=== PATIENT | male | born 1995 | race Caucasian/White ===

== ENCOUNTER 2016-07-04 16:48 | Emergency (ER) | payer OTHER ==
[~2016-07-04] VITALS: Ht 177.8 cm; Wt 73.0 kg
[~2016-07-04 16:48] MED LIST: LITH1TAB3 OR; RISP1TAB51 OR
[2016-07-04 17:04] VITALS: BP 119/75; PULSE 98; RESP 18; TEMP 98.5; O2SAT 98
[2016-07-04] MEDS ORDERED: TETANUS/DIPHTHERIA TOXOID ADULT 0.5 ML VIAL IM ONE (17:45)
--- NOTE | 2016-07-04 17:45 | PD ---
HPI Chief Complaint: Psychiatric Symptoms Time Seen by Provider: 17:41 Travel History International Travel<30 days: No Contact w/Intl Traveler<30days: No Traveled to known affect area: No History of Present Illness HPI 21-year-old male that presents to the ED for evaluation of psych. Patient was [place] acted by police after apparently he got himself in the bathroom and started to cut himself cutting himself that he wasn't hurt himself. Patient has a history of anxiety, depression, substance abuse as well as possible bipolar. Patient denies taking any medications he states that he is to be a lot of medications but he has not been on any medications for almost 2 years. He denies any allergies to medication. Patient states that he does not know his last tetanus shot. Per patient he cut himself to kill himself. Patient has multiple cuts are very superficial to the wrist, legs. He denies any other injury. No allergies to medication. No chest pain or shortness of breath. Denies any recent substance abuse. PFSH Past Medical History ADHD: No Cancer: No Cardiovascular Problems: No Diabetes: No Psychiatric: Yes (ADHD) Migraines: No Seizures: No Thyroid Disease: No Ulcer: No Social History Alcohol Use: No Tobacco Use: No Substance Use: Yes Allergies-Medications (Allergen,Severity, Reaction): Coded Allergies: No Known Allergies (Unverified , 01/14/12) Reported Meds & Prescriptions Reported Meds & Active Scripts Active Reported Lithobid ([place] Carbonate) 300 Mg Tab 450 Mg OR BID (0700,2100) Risperdal (Risperidone) 1 Mg Tab 1 Mg OR BID (0700,2100) Review of Systems Except as stated in HPI: all other systems reviewed are Neg Physical Exam Narrative GENERAL: SKIN: Warm and dry. Patient has multiple superficial cuts to the wrist and legs bilaterally. Most of them less than 1 mm deep. No active bleeding. At least more than 30 different cuts. HEAD: Atraumatic. Normocephalic. EYES: Pupils equal and round. No scleral icterus. No injection or drainage. ENT: No nasal bleeding or discharge. Mucous membranes pink and moist. Tongue is midline. No uvula deviation. NECK: Trachea midline. No JVD. CARDIOVASCULAR: Regular rate and rhythm. No murmurs, S3, S4. RESPIRATORY: No accessory muscle use. Clear to auscultation. Breath sounds equal bilaterally. GASTROINTESTINAL: Abdomen soft, non-tender, nondistended. Hepatic and splenic margins not palpable. MUSCULOSKELETAL: Extremities without clubbing, cyanosis, or edema. No obvious deformities. Full range of motion of the upper and lower extremities bilaterally. 2+ pulses bilaterally. NEUROLOGICAL: Awake and alert. No obvious cranial nerve deficits. Motor grossly within normal limits. Five out of 5 muscle strength in the arms and legs. Normal speech. PSYCHIATRIC: Appropriate mood and affect; insight and judgment normal. Data Data Last Documented VS Vital Signs Date Time Temp Pulse Resp B/P Pulse Ox O2 Delivery O2 Flow Rate FiO2 07/04/16 20:21 131 18 141/76 98 Room Air 07/04/16 17:04 98.5 Orders Complete Blood Count With Diff (07/04/16 17:14) Comprehensive Metabolic Panel (07/04/16 17:14) Psych Screen (07/04/16 17:14) Drug Screen, Random Urine (07/04/16 17:14) Alcohol (Ethanol) (07/04/16 17:14) Tetanus/Diphtheria Tox Adult (Tetanus/Di (07/04/16 17:45) Wound Care (07/04/16 18:57) Labs Laboratory Tests Test 07/04/16 07/04/16 17:32 17:40 White Blood Count 8.0 TH/MM3 Red Blood Count 5.01 MIL/MM3 Hemoglobin 14.6 GM/DL Hematocrit 43.6 % Mean Corpuscular Volume 87.2 FL Mean Corpuscular Hemoglobin 29.1 PG Mean Corpuscular Hemoglobin 33.4 % Concent Red Cell Distribution Width 13.4 % Platelet Count 164 TH/MM3 Mean Platelet Volume 10.3 FL Neutrophils (%) (Auto) 64.0 % Lymphocytes (%) (Auto) 23.7 % Monocytes (%) (Auto) 11.2 % Eosinophils (%) (Auto) 0.6 % Basophils (%) (Auto) 0.5 % Neutrophils # (Auto) 5.2 TH/MM3 Lymphocytes # (Auto) 1.9 TH/MM3 Monocytes # (Auto) 0.9 TH/MM3 Eosinophils # (Auto) 0.0 TH/MM3 Basophils # (Auto) 0.0 TH/MM3 CBC Comment DIFF FINAL Differential Comment Sodium Level 139 MEQ/L Potassium Level 4.5 MEQ/L Chloride Level 105 MEQ/L Carbon Dioxide Level 24.1 MEQ/L Anion Gap 10 MEQ/L Blood Urea Nitrogen 22 MG/DL Creatinine 1.10 MG/DL Estimat Glomerular Filtration 84 ML/MIN Rate Random Glucose 96 MG/DL Calcium Level 9.3 MG/DL Total Bilirubin 0.6 MG/DL Aspartate Amino Transf 18 U/L (AST/SGOT) Alanine Aminotransferase 23 U/L (ALT/SGPT) Alkaline Phosphatase 90 U/L Total Protein 8.1 GM/DL Albumin 4.3 GM/DL Ethyl Alcohol Level LESS THAN 3 MG/DL Urine Opiates Screen POS Urine Barbiturates Screen NEG Urine Amphetamines Screen NEG Urine Benzodiazepines Screen NEG Urine Cocaine Screen NEG Urine Cannabinoids Screen NEG MDM Medical Decision Making Medical Screen Exam Complete: Yes Emergency Medical Condition: Yes Medical Record Reviewed: Yes Interpretation(s) tox positive for opiates CBC & BMP Diagram 07/04/16 17:32 Differential Diagnosis Depression versus suicidal ideation versus anxiety versus adjustment disorder versus mood disorder versus bipolar disorder versus schizophrenia versus paranoid disorder versus psychosis versus substance abuse versus alcohol abuse versus alcohol induced psychosis versus homicidality addition versus cutting versus personality disorder Narrative Course 21-year-old male that presents to the ED for evaluation of psych. Patient was properly examined and was found to have signs and symptoms consistent psychiatric illness. No sign of acute medical distress. Labs were drawn. Wound care was done. Patient was given tetanus booster. Patient was medically cleared. Okay to be seen by psych. Mental health screening was discussed with the patient. Diagnosis Primary Impression: Mood disorder Additional Impression: Deliberate self-cutting Talon Howell July 04, 2016 17:45
[2016-07-04 17:56] LABS: AUTOMATED NEUTROPHIL # 5.2 TH/MM3 (1.8-7.7); BASOPHIL % 0.5 % (0.0-2.0); EOSINOPHIL % 0.6 % (0.0-4.0); HEMATOCRIT 43.6 % (39.0-51.0); HEMO FLAGS DIFF FINAL; LYMPH % 23.7 % (9.0-44.0); LYMPHOCYTE # 1.9 TH/MM3 (1.0-4.8); MEAN CELL VOLUME 87.2 FL (80.0-100.0); MEAN CORPUSCULAR HEMOGLOBIN 29.1 PG (27.0-34.0); MEAN CORPUSCULAR HGB CONC 33.4 % (32.0-36.0); MONO % 11.2 % (0.0-8.0); PLATELET COUNT 164 TH/MM3 (150-450); RED BLOOD COUNT 5.01 MIL/MM3 (4.50-5.90); RED CELL DISTRIBUTION WIDTH 13.4 % (11.6-17.2)
[2016-07-04 18:09] LABS: AMPHETAMINE, URINE NEG (NEG); BARBITURATES, URINE NEG (NEG); COCAINE, URINE NEG (NEG)
[2016-07-04 18:12] LABS: ANION GAP 10 MEQ/L (5-15)
[2016-07-04 18:15] LABS: ALKALINE PHOSPHATASE 90 U/L (45-117); ALT (GPT) 23 U/L (12-78); AST (GOT) 18 U/L (15-37); BICARBONATE 24.1 MEQ/L (21.0-32.0); BLOOD UREA NITROGEN 22 MG/DL (7-18); CHLORIDE 105 MEQ/L (98-107); GLOMERULAR FILTRATION RATE 84 ML/MIN (>89); POTASSIUM 4.5 MEQ/L (3.5-5.1); SODIUM (NA) 139 MEQ/L (136-145); TOTAL BILIRUBIN ADULT 0.6 MG/DL (0.2-1.0)
[2016-07-04 20:21] VITALS: BP 141/76; PULSE 131; RESP 18; O2SAT 98
[2016-07-04 22:22] VITALS: BP 118/61; PULSE 91; RESP 18; O2SAT 98
[2016-07-05 01:53] VITALS: BP 119/67; PULSE 66; RESP 18; O2SAT 100
[2016-07-05 06:26] VITALS: BP 112/58; PULSE 60; RESP 16; O2SAT 98
[2016-07-05 10:36] VITALS: BP 100/56; PULSE 98; RESP 18; TEMP 98.6; O2SAT 100
[2016-07-05 14:40] VITALS: BP 135/78; PULSE 144; RESP 18; O2SAT 99
[2016-07-05 18:58] VITALS: BP 120/66; PULSE 95; RESP 16; O2SAT 98
[2016-07-05 22:00] VITALS: BP 109/56; PULSE 72; RESP 19; O2SAT 97
== END 2016-07-05 23:04 ==
LOC: NEDAMB 16:48 → NEDA 07-05 21:33 → UNDOADMIN 07-05 21:33 → NEPJ 07-05 23:04
DX: F39 Unspecified mood [affective] disorder (principal); S61.512A Laceration without foreign body of left wrist, initial encounter; S61.511A Laceration without foreign body of right wrist, initial encounter; S81.812A Laceration without foreign body, left lower leg, initial encounter; S81.811A Laceration without foreign body, right lower leg, initial encounter; X78.9XXA Intentional self-harm by unspecified sharp object, initial encounter; Z23 Encounter for immunization
CPT/HCPCS: 80053; 80307; 85025; 90471; 90714

== ENCOUNTER 2017-06-03 07:45 | Emergency (ER) | payer OTHER ==
[~2017-06-03] VITALS: Ht 172.7 cm; Wt 64.0 kg
[2017-06-03 07:56] VITALS: BP 115/71; PULSE 111; RESP 18; TEMP 98; O2SAT 97
[2017-06-03] MEDS ORDERED: LORazepam 2 MG/ML VIAL IV PUSH ONE ×2 (08:15→11:45)
[2017-06-03] MEDS ORDERED: SODIUM CHLOR 0.9% 1000 ML INJ 1,000 ML IV ONE (08:15)
[2017-06-03 08:44] LABS: AUTOMATED NEUTROPHIL # 14.1 TH/MM3 (1.8-7.7); BASOPHIL # 0.1 TH/MM3 (0-0.2); BASOPHIL % 0.6 % (0.0-2.0); EOSINOPHIL # 0.1 TH/MM3 (0-0.4); EOSINOPHIL % 0.6 % (0.0-4.0); HEMATOCRIT 44.4 % (39.0-51.0); HEMOGLOBIN 15.5 GM/DL (13.0-17.0); LYMPH % 10.8 % (9.0-44.0); MEAN CELL VOLUME 87.5 FL (80.0-100.0); MEAN CORPUSCULAR HEMOGLOBIN 30.5 PG (27.0-34.0); MEAN CORPUSCULAR HGB CONC 34.9 % (32.0-36.0); MEAN PLATELET VOLUME 10.1 FL (7.0-11.0); PLATELET COUNT 234 TH/MM3 (150-450); RED BLOOD COUNT 5.08 MIL/MM3 (4.50-5.90); RED CELL DISTRIBUTION WIDTH 12.2 % (11.6-17.2); WHITE BLOOD COUNT 18.3 TH/MM3 (4.0-11.0)
[2017-06-03 08:56] LABS: ALBUMIN 4.4 GM/DL (3.4-5.0); ALT (GPT) 23 U/L (12-78); AST (GOT) 41 U/L (15-37); BICARBONATE 19.4 MEQ/L (21.0-32.0); BLOOD UREA NITROGEN 26 MG/DL (7-18); CALCIUM 8.8 MG/DL (8.5-10.1); CHLORIDE 113 MEQ/L (98-107); CREATININE 1.23 MG/DL (0.60-1.30); GLOMERULAR FILTRATION RATE 73 ML/MIN (>89); GLUCOSE,RANDOM 56 MG/DL (74-106); SODIUM (NA) 144 MEQ/L (136-145)
[2017-06-03 08:59] LABS: ALKALINE PHOSPHATASE 73 U/L (45-117); TOTAL BILIRUBIN ADULT 1.8 MG/DL (0.2-1.0); TOTAL PROTEIN 7.6 GM/DL (6.4-8.2)
[2017-06-03 12:17] VITALS: BP 109/74; PULSE 104; RESP 16; O2SAT 100
[2017-06-03 15:40] VITALS: BP 124/84; PULSE 136; RESP 18; O2SAT 100
--- NOTE | 2017-06-03 15:41 | PD ---
HPI Chief Complaint: Alcohol/Drug Intoxication Time Seen by Provider: 08:06 Travel History International Travel<30 days: No Contact w/Intl Traveler<30days: No Traveled to known affect area: No History of Present Illness HPI Patient is a 22-year-old male brought in by EMS due to likely intoxication. Per EMS, he was found laying in the median of the road with jerking movements. A passerby had called 911 because they were concerned he was having a seizure. Patient says he took some sort of white powder, he does not know what it was. He says he has not slept in 96 hours and he just really wanted to go to sleep that is why he was in the median. He has no complaints at this time. Severity is mild to moderate. PFSH Past Medical History ADHD: No Cancer: No Cardiovascular Problems: No Diabetes: No Psychiatric: Yes (ADHD) Migraines: No Seizures: No Thyroid Disease: No Ulcer: No ?: Not Past Surgical History Other Surgery: No Social History Alcohol Use: No Tobacco Use: No Substance Use: Yes ("opiate abuse and dashawn") Allergies-Medications (Allergen,Severity, Reaction): Coded Allergies: No Known Allergies (Unverified , 01/14/12) Reported Meds & Prescriptions Reported Meds & Active Scripts Active Review of Systems Except as stated in HPI: all other systems reviewed are Neg General / Constitutional: No: Fever, Chills Eyes: No: Blurred Vision HENT: No: Headaches Cardiovascular: No: Chest Pain or Discomfort Respiratory: No: Shortness of Breath Skin: No Rash, No Change in Pigmentation Neurologic: No: Weakness, Dizziness Physical Exam Narrative GENERAL: Patient cannot hold still and is jerking his body all over. He is awake and able to communicate. SKIN: Focused skin assessment warm/dry. No wounds or signs of infection. HEAD: Atraumatic. Normocephalic. EYES: Pupils equal and round and reactive. No scleral icterus. EOMI. ENT: Mucous membranes pink and moist. NECK: Trachea midline. No JVD. CARDIOVASCULAR: Regular rate and rhythm. No murmur appreciated. RESPIRATORY: No accessory muscle use. Clear to auscultation. Breath sounds equal bilaterally. GASTROINTESTINAL: Abdomen soft, non-tender, nondistended. MUSCULOSKELETAL: No obvious deformities. No clubbing. No cyanosis. No edema. NEUROLOGICAL: Awake and alert, obviously intoxicated. No obvious cranial nerve deficits. uncontrollable body movements. Data Data Last Documented VS Vital Signs Date Time Temp Pulse Resp B/P (MAP) Pulse Ox O2 Delivery O2 Flow Rate FiO2 06/03/17 12:17 104 16 109/74 (86) 100 Nasal Cannula 3.00 06/03/17 07:56 98.0 Orders Orders Iv Access Insert/Monitor (06/03/17 08:06) Complete Blood Count With Diff (06/03/17 08:06) Comprehensive Metabolic Panel (06/03/17 08:06) Sodium Chlor 0.9% 1000 Ml Inj (Ns 1000 M (06/03/17 08:15) Lorazepam Inj (Ativan Inj) (06/03/17 08:15) Creatine Kinase (Cpk) (06/03/17 08:06) CKMB (06/03/17 08:10) CKMB% (06/03/17 08:10) Lorazepam Inj (Ativan Inj) (06/03/17 11:45) Psych Screen (06/03/17 14:56) Drug Screen, Random Urine (06/03/17 14:56) Labs Laboratory Tests Test 06/03/17 08:10 White Blood Count 18.3 TH/MM3 Red Blood Count 5.08 MIL/MM3 Hemoglobin 15.5 GM/DL Hematocrit 44.4 % Mean Corpuscular Volume 87.5 FL Mean Corpuscular Hemoglobin 30.5 PG Mean Corpuscular Hemoglobin Concent 34.9 % Red Cell Distribution Width 12.2 % Platelet Count 234 TH/MM3 Mean Platelet Volume 10.1 FL Neutrophils (%) (Auto) 77.0 % Lymphocytes (%) (Auto) 10.8 % Monocytes (%) (Auto) 11.0 % Eosinophils (%) (Auto) 0.6 % Basophils (%) (Auto) 0.6 % Neutrophils # (Auto) 14.1 TH/MM3 Lymphocytes # (Auto) 2.0 TH/MM3 Monocytes # (Auto) 2.0 TH/MM3 Eosinophils # (Auto) 0.1 TH/MM3 Basophils # (Auto) 0.1 TH/MM3 CBC Comment DIFF FINAL Differential Comment Blood Urea Nitrogen 26 MG/DL Creatinine 1.23 MG/DL Random Glucose 56 MG/DL Total Protein 7.6 GM/DL Albumin 4.4 GM/DL Calcium Level 8.8 MG/DL Alkaline Phosphatase 73 U/L Aspartate Amino Transf (AST/SGOT) 41 U/L Alanine Aminotransferase (ALT/SGPT) 23 U/L Total Bilirubin 1.8 MG/DL Sodium Level 144 MEQ/L Potassium Level 3.5 MEQ/L Chloride Level 113 MEQ/L Carbon Dioxide Level 19.4 MEQ/L Anion Gap 12 MEQ/L Estimat Glomerular Filtration Rate 73 ML/MIN Total Creatine Kinase 879 U/L Creatine Kinase MB 6.4 NG/ML Creatine Kinase MB % 0.7 % MDM Medical Decision Making Medical Screen Exam Complete: Yes Emergency Medical Condition: Yes Medical Record Reviewed: Yes Differential Diagnosis Drug abuse versus overdose versus electrolyte abnormality versus rhabdomyolysis versus dehydration Narrative Course Patient is a 22-year-old male who is brought in after he was found laying in the median on the road. He says he was just trying to get some sleep. He does admit to using some sort of white powder, he does not know what it was. He has no complaints at this time. He is jerking around and unable to control himself. IV was established. He was given IV fluids, Ativan. Labs sent do show an elevated white blood cell count, however patient has no signs or symptoms of infection, believe this is likely a stress reaction. Patient observed with continued jerking movements, he was given a second dose of Ativan and additional fluids. He was observed in the emergency department with improvement. His sister came and expressed concerns that he is depressed. She says that he has been telling her that he just cannot deal with it anymore and just wants to go. Psych screen ordered. Diagnosis Primary Impression: Drug intoxication Qualified Codes: F19.920 - Other psychoactive substance use, unspecified with intoxication, uncomplicated Andie Fuentes MD Jun 03, 2017 15:41
[2017-06-03 15:49] VITALS: PULSE 84; RESP 18; O2SAT 99
[2017-06-03 17:37] LABS: AUTOMATED NEUTROPHIL # 7.4 TH/MM3 (1.8-7.7); BASOPHIL # 0.1 TH/MM3 (0-0.2); BASOPHIL % 1.1 % (0.0-2.0); EOSINOPHIL # 0.4 TH/MM3 (0-0.4); EOSINOPHIL % 3.6 % (0.0-4.0); HEMATOCRIT 42.8 % (39.0-51.0); HEMOGLOBIN 14.7 GM/DL (13.0-17.0); LYMPH % 18.6 % (9.0-44.0); LYMPHOCYTE # 2.1 TH/MM3 (1.0-4.8); MEAN CELL VOLUME 89.4 FL (80.0-100.0); MEAN CORPUSCULAR HEMOGLOBIN 30.7 PG (27.0-34.0); MEAN CORPUSCULAR HGB CONC 34.4 % (32.0-36.0); MEAN PLATELET VOLUME 9.7 FL (7.0-11.0); MONO % 10.2 % (0.0-8.0); MONOCYTE # 1.1 TH/MM3 (0-0.9); NEUT % 66.5 % (16.0-70.0); PLATELET COUNT 193 TH/MM3 (150-450); RED BLOOD COUNT 4.79 MIL/MM3 (4.50-5.90); RED CELL DISTRIBUTION WIDTH 12.5 % (11.6-17.2); WHITE BLOOD COUNT 11.2 TH/MM3 (4.0-11.0)
[2017-06-03 18:02] LABS: CALCIUM 8.4 MG/DL (8.5-10.1); CREATININE 1.07 MG/DL (0.60-1.30)
[2017-06-03 18:31] VITALS: BP 117/56; PULSE 69; RESP 18; O2SAT 100
--- NOTE | 2017-06-03 23:38 | PD ---
Physical Exam Date Seen by Provider: Jun 03, 2017 Narrative This patient was left here at shift change as a "sleep it off." He is now sitting up in the bed looking around in no acute distress. He has a ride coming to pick him up. Data Data Last Documented VS Vital Signs Date Time Temp Pulse Resp B/P (MAP) Pulse Ox O2 Delivery O2 Flow Rate FiO2 06/03/17 18:31 69 18 117/56 (76) 100 Nasal Cannula 2.00 06/03/17 07:56 98.0 Orders Orders Iv Access Insert/Monitor (06/03/17 08:06) Complete Blood Count With Diff (06/03/17 08:06) Comprehensive Metabolic Panel (06/03/17 08:06) Sodium Chlor 0.9% 1000 Ml Inj (Ns 1000 M (06/03/17 08:15) Lorazepam Inj (Ativan Inj) (06/03/17 08:15) Creatine Kinase (Cpk) (06/03/17 08:06) CKMB (06/03/17 08:10) CKMB% (06/03/17 08:10) Lorazepam Inj (Ativan Inj) (06/03/17 11:45) Psych Screen (06/03/17 14:56) Drug Screen, Random Urine (06/03/17 14:56) Diet Regular Basic (06/03/17 Dinner) Complete Blood Count With Diff (06/03/17 17:00) Basic Metabolic Panel (Bmp) (06/03/17 17:00) Creatine Kinase (Cpk) (06/03/17 17:00) CKMB (06/03/17 17:15) CKMB% (06/03/17 17:15) Ed Discharge Order (06/03/17 23:37) Labs Laboratory Tests Test 06/03/17 08:10 06/03/17 17:15 06/03/17 18:05 White Blood Count 18.3 TH/MM3 11.2 TH/MM3 Red Blood Count 5.08 MIL/MM3 4.79 MIL/MM3 Hemoglobin 15.5 GM/DL 14.7 GM/DL Hematocrit 44.4 % 42.8 % Mean Corpuscular Volume 87.5 FL 89.4 FL Mean Corpuscular Hemoglobin 30.5 PG 30.7 PG Mean Corpuscular Hemoglobin Concent 34.9 % 34.4 % Red Cell Distribution Width 12.2 % 12.5 % Platelet Count 234 TH/MM3 193 TH/MM3 Mean Platelet Volume 10.1 FL 9.7 FL Neutrophils (%) (Auto) 77.0 % 66.5 % Lymphocytes (%) (Auto) 10.8 % 18.6 % Monocytes (%) (Auto) 11.0 % 10.2 % Eosinophils (%) (Auto) 0.6 % 3.6 % Basophils (%) (Auto) 0.6 % 1.1 % Neutrophils # (Auto) 14.1 TH/MM3 7.4 TH/MM3 Lymphocytes # (Auto) 2.0 TH/MM3 2.1 TH/MM3 Monocytes # (Auto) 2.0 TH/MM3 1.1 TH/MM3 Eosinophils # (Auto) 0.1 TH/MM3 0.4 TH/MM3 Basophils # (Auto) 0.1 TH/MM3 0.1 TH/MM3 CBC Comment DIFF FINAL DIFF FINAL Differential Comment Blood Urea Nitrogen 26 MG/DL 30 MG/DL Creatinine 1.23 MG/DL 1.07 MG/DL Random Glucose 56 MG/DL 117 MG/DL Total Protein 7.6 GM/DL Albumin 4.4 GM/DL Calcium Level 8.8 MG/DL 8.4 MG/DL Alkaline Phosphatase 73 U/L Aspartate Amino Transf (AST/SGOT) 41 U/L Alanine Aminotransferase (ALT/SGPT) 23 U/L Total Bilirubin 1.8 MG/DL Sodium Level 144 MEQ/L 144 MEQ/L Potassium Level 3.5 MEQ/L 4.1 MEQ/L Chloride Level 113 MEQ/L 113 MEQ/L Carbon Dioxide Level 19.4 MEQ/L 22.0 MEQ/L Anion Gap 12 MEQ/L 9 MEQ/L Estimat Glomerular Filtration Rate 73 ML/MIN 86 ML/MIN Total Creatine Kinase 879 U/L 544 U/L Creatine Kinase MB 6.4 NG/ML 5.2 NG/ML Creatine Kinase MB % 0.7 % 1.0 % Urine Opiates Screen NEG Urine Barbiturates Screen NEG Urine Amphetamines Screen NEG Urine Benzodiazepines Screen NEG Urine Cocaine Screen NEG Urine Cannabinoids Screen POS MDM Supervised Visit with GEORGINA: No Diagnosis Primary Impression: Drug intoxication Qualified Codes: F19.920 - Other psychoactive substance use, unspecified with intoxication, uncomplicated Queenie Padilla MD Jun 03, 2017 23:38
== END 2017-06-04 00:04 | disposition home or self-care (01) ==
LOC: NEPE 07:45
DX: F19.920 Other psychoactive substance use, unspecified with intoxication, uncomplicated (principal); F12.10 Cannabis abuse, uncomplicated; F90.9 Attention-deficit hyperactivity disorder, unspecified type
CPT/HCPCS: 80053; 80307; 82550; 82552; 85025; 96361; 96374; 96376; 99284; J2060; J7030; 80048